=== PATIENT | male | born 1990 | race Caucasian/White ===

== ENCOUNTER 2017-07-08 06:01 | Emergency (ER) | payer MEDICAID ==
[~2017-07-08] VITALS: Ht 177.8 cm; Wt 104.3 kg
[2017-07-08 06:15] VITALS: BP 145/78
--- NOTE | 2017-07-08 06:20 | PHYS DOC ---
Adult General Chief Complaint Chief Complaint: ABDOMINAL PAIN HPI HPI Patient is a 26 year old male who presents with left-sided back pain that radiates around to his abdomen. States it started 2 AM was watching TV/ playing video games. He has a history of alcohol syndrome and mom had hepatitis when he was born and she at the age of 37. He is disabled by the state with an IQ of 40. He denies any nausea vomiting shortness of breath. He states the pain is constant since left side of his back and around his epigastric area. States he waited 3-4 hours before he came to the ER with his grandmother. States nothing he does makes the pain better or worse. He also states he feels short of breath with this. He denies a cough. States his same thing happen about a month ago it resolved after about 20 minutes. Review of Systems Review of Systems Constitutional: Denies fever or chills [] Eyes: Denies change in visual acuity, redness, or eye pain [] HENT: Denies nasal congestion or sore throat [] Respiratory: Denies cough or shortness of breath [] Cardiovascular: No additional information not addressed in HPI [] GI: Nausea for abdominal pain, and denies any nausea, vomiting, bloody stools or diarrhea [] : Denies dysuria or hematuria [] Musculoskeletal: Left-sided back pain, Denies joint pain [] Integument: Denies rash or skin lesions [] Neurologic: Denies headache, focal weakness or sensory changes [] Endocrine: Denies polyuria or polydipsia [] All other systems were reviewed and found to be within normal limits, except as documented in this note. Current Medications Current Medications Current Medications Medications (Trade) Dose Ordered Sig/Jovanny Start Time Stop Time Status Last Admin Dose Admin Multi-Ingredient Mouthwash/Gargle (Gi Cocktail Single Dose) 15 ml 1X ONCE 07/08/17 06:45 07/08/17 06:46 DC 07/08/17 06:43 15 ML Potassium Chloride (KCl Oral Soln) 40 meq 1X ONCE 07/08/17 10:30 07/08/17 10:31 Allergies Allergies Allergies Coded Allergies Type Severity Reaction Last Updated Verified No Known Drug Allergies 07/08/17 No Physical Exam Physical Exam Constitutional: Well developed, well nourished, no acute distress, non-toxic appearance. [] HENT: Normocephalic, atraumatic, bilateral external ears normal, oropharynx moist, no oral exudates, nose normal. [] Eyes: PERRLA, EOMI, conjunctiva normal, no discharge. [] Neck: Normal range of motion, no tenderness, supple, no stridor. [] Cardiovascular:Heart rate regular rhythm, no murmur [] Lungs & Thorax: Bilateral breath sounds clear to auscultation [] Abdomen: Bowel sounds normal, soft, no tenderness, no masses, no pulsatile masses. Unable to obtain a great abdominal exam because he is ticklish on exam Skin: Warm, dry, no erythema, no rash. [] Back: No tenderness, no CVA tenderness. [] Extremities: No tenderness, no cyanosis, no clubbing, ROM intact, no edema. [] Neurologic: Alert and oriented X 3, normal motor function, normal sensory function, no focal deficits noted. [] Psychologic: Affect normal, judgement normal, mood normal. [] Current Patient Data Vital Signs Vital Signs Date Time Temp Pulse Resp B/P (MAP) Pulse Ox O2 Delivery O2 Flow Rate FiO2 07/08/17 06:15 97.8 85 21 145/78 (100) 99 Room Air 97.8 Lab Values Laboratory Tests Test 07/08/17 06:15 White Blood Count 6.5 x10^3/uL (4.0-11.0) Red Blood Count 5.83 x10^6/uL (4.30-5.70) H Hemoglobin 16.8 g/dL (13.0-17.5) Hematocrit 48.9 % (39.0-53.0) Mean Corpuscular Volume 84 fL (79-100) Mean Corpuscular Hemoglobin 29 pg (25-35) Mean Corpuscular Hemoglobin Concent 34 g/dL (31-37) Red Cell Distribution Width 12.9 % (11.5-14.5) Platelet Count 186 x10^3/uL (140-400) Neutrophils (%) (Auto) 50 % (31-73) Lymphocytes (%) (Auto) 35 % (24-48) Monocytes (%) (Auto) 11 % (0-9) H Eosinophils (%) (Auto) 3 % (0-3) Basophils (%) (Auto) 1 % (0-3) Neutrophils # (Auto) 3.3 x10^3uL (1.8-7.7) Lymphocytes # (Auto) 2.3 x10^3/uL (1.0-4.8) Monocytes # (Auto) 0.7 x10^3/uL (0.0-1.1) Eosinophils # (Auto) 0.2 x10^3/uL (0.0-0.7) Basophils # (Auto) 0.1 x10^3/uL (0.0-0.2) Prothrombin Time 12.4 SEC (11.7-14.0) Prothrombin Time INR 1.0 (0.8-1.1) PTT 29 SEC (24-38) D-Dimer (Stefany) 0.21 ug/mlFEU (0.00-0.50) Urine Collection Type Unknown Urine Color Yellow Urine Clarity Clear Urine pH 6.5 Urine Specific [place] 1.020 Urine Protein Negative mg/dL (NEG-TRACE) Urine Glucose (UA) Negative mg/dL (NEG) Urine Ketones (Stick) Negative mg/dL (NEG) Urine Blood Negative (NEG) Urine Nitrite Negative (NEG) Urine Bilirubin Negative (NEG) Urine Urobilinogen Dipstick 2.0 mg/dL (0.2 mg/dL) Urine Leukocyte Esterase Negative (NEG) Urine RBC 0 /HPF (0-2) Urine WBC 0 /HPF (0-4) Urine Squamous Epithelial Cells Few /LPF Urine Bacteria 0 /HPF (0-FEW) Urine Mucus Slight /LPF Sodium Level 140 mmol/L (136-145) Potassium Level 3.0 mmol/L (3.5-5.1) L Chloride Level 102 mmol/L (98-107) Carbon Dioxide Level 29 mmol/L (21-32) Anion Gap 9 (6-14) Blood Urea Nitrogen 12 mg/dL (8-26) Creatinine 1.0 mg/dL (0.7-1.3) Estimated GFR (Cockcroft-Gault) 91.8 Glucose Level 120 mg/dL (70-99) H Calcium Level 8.6 mg/dL (8.5-10.1) Total Bilirubin 0.8 mg/dL (0.2-1.0) Direct Bilirubin 0.2 mg/dL (0.0-0.2) Aspartate Amino Transferase (AST) 28 U/L (15-37) Alanine Aminotransferase (ALT) 59 U/L (16-63) Alkaline Phosphatase 45 U/L (46-116) L Creatine Kinase 257 U/L (39-308) Creatine Kinase MB (Mass) < 0.5 ng/mL (0.0-3.6) Creatine Kinase MB Relative Index % (0-4) Total Protein 7.0 g/dL (6.4-8.2) Albumin 4.1 g/dL (3.4-5.0) Lipase 128 U/L (73-393) Urine Opiates Screen Neg (NEG) Urine Methadone Screen Neg (NEG) Urine Barbiturates Neg (NEG) Urine Phencyclidine Screen Neg (NEG) Urine Amphetamine/Methamphetamine Neg (NEG) Urine Benzodiazepines Screen Neg (NEG) Urine Cocaine Screen Neg (NEG) Urine Cannabinoids Screen Neg (NEG) Urine Ethyl Alcohol Neg (NEG) Laboratory Tests 07/08/17 06:15 Laboratory Tests 07/08/17 06:15 EKG EKG EKG shows sinus rhythm with a rate of [address] elevations or concerning T-wave inversions, normal axis, QTC 366 ms, as interpreted by me. Radiology/Procedures Radiology/Procedures [facility] [address] [place] [address] IMAGING REPORT Signed PATIENT: JOAQUÍN BYRD ACCOUNT: [id number] : 1990 LOCATION: ER AGE: 26 SEX: M EXAM STATUS: REG ER ORD. PHYSICIAN: ISABELLA WADE MD REASON: abd pain PROCEDURE: ACUTE ABDOMEN SERIES ACUTE ABDOMEN SERIES Clinical Indication: abd pain Comparison: None. Technique: Upright and supine views of the abdomen are obtained, frontal view of the chest is obtained. Findings: No focal opacity, pleural effusion or pneumothorax is seen within the chest. Cardia mediastinal silhouette is within normal limits of size. No intra-abdominal free air or air-fluid levels are seen on the upright view. A nonobstructive appearing bowel gas pattern is present. Small amount of formed fecal material seen within the colon. Visualized osseous structures and surrounding soft tissues demonstrate no acute finding. IMPRESSION: No acute radiographic finding in the chest or abdomen. Nonobstructive appearing bowel gas pattern. DICTATED and SIGNED BY: OZZY ROLLINS MD DATE: 07/08/17 0738 CC: ISABELLA WADE MD; NO PCP ~ Impressions: Abdominal pain-resolved Hypokalemia Course & Med Decision Making Course & Med Decision Making Pertinent Labs and Imaging studies reviewed. (See chart for details) His labs, EKG, acute abdominal series are all nonacute. His pain is now 1 out of 10. Vikram's upset that he is been here for 3 hours and 30 minutes. I explained to her that there was a sick patient required my attention for the last hour plus. She was an ostomy CAN'T see him. I explained to her that we've been waiting for his blood work and x-rays and additional studies. She states she wants to go home now. His since his pain is decreased to a 1 out of 2 and he is agreeable being discharged and will discharge him home. They will need to follow-up with primary care physicians as a do not have one. Return precautions given. I have canceled the d-dimer because he is not tachycardic or tachypneic and not complaining of shortness of breath. His potassium was replaced with 140 mEq vial liquid 1. He cannot take pills. He is instructed to eat a banana at home. Dragon Disclaimer Dragon Disclaimer This electronic medical record was generated, in whole or in part, using a voice recognition dictation system. Departure Departure Impression: Primary Impression: Abdominal pain Disposition: 01 HOME, SELF-CARE Admitting Physician: Other Condition: STABLE Patient Instructions: Abdominal Pain Additional Instructions: Your x-ray of your chest and abdomen, your blood work, and your EKG, did not show any acute abnormality's. Your pain has resolved. This could be a muscle spasm, it could be gas pain, it could be a lot of different things causing this discomfort. At this point you will need to be discharged home and don't want to stay for any additional tests. You will need to follow-up with primary care physician's since you don't have one. You need to return back to ER if you have increasing pain, troubles breathing, high fevers, troubles urinating, you have diarrhea, or you have any other concerns. Her potassium was slightly low it was replaced with a dose in the ER. You will need to eat 1- 2 bananas at home tomorrow to keep it in the normal range. You should follow-up with her primary care physician regarding your low potassium level. ISABELLA WADE MD Jul 08, 2017 06:20
[2017-07-08] MEDS ORDERED: LIDO:MAALOX:DONNATAL 1:1:1 15 ML SINGLE DOSE SWSW ONE (06:45)
[2017-07-08 06:59] LABS: BILIRUBIN,URINE NEGATIVE (NEG); GLUCOSE,URINE NEGATIVE (NEG); NITRITE,URINE NEGATIVE (NEG); PH,URINE 6.5; PROTEIN,URINE NEGATIVE (NEG-TRACE)
[2017-07-08 07:02] LABS: CALCIUM 8.6 mg/dL (8.5-10.1); GFR 91.8
[2017-07-08 07:10] LABS: ALBUMIN 4.1 g/dL (3.4-5.0); BASO # 0.1 x10^3/uL (0.0-0.2); BASO % 1 % (0-3); EOS % 3 % (0-3); HEMATOCRIT 48.9 % (39.0-53.0); HEMOGLOBIN 16.8 g/dL (13.0-17.5); LYMPH # 2.3 x10^3/uL (1.0-4.8); LYMPH % 35 % (24-48); MEAN CORPUSCULAR HEMOGLOBIN 29 pg (25-35); MEAN CORPUSCULAR HGB CONC 34 g/dL (31-37); MEAN CORPUSCULAR VOLUME 84 fL (79-100); MONO % 11 % (0-9); NEUT % 50 % (31-73); PLATELET COUNT 186 x10^3/uL (140-400); RED BLOOD COUNT 5.83 x10^6/uL (4.30-5.70); RED CELL DISTRIBUTION WIDTH 12.9 % (11.5-14.5); WHITE BLOOD COUNT 6.5 x10^3/uL (4.0-11.0)
[2017-07-08 07:19] LABS: BARBITURATES NEG (NEG); BENZODIAZEPINES NEG (NEG); CANNABINOIDS NEG (NEG); COCAINE NEG (NEG); METHADONE NEG (NEG); OPIATES NEG (NEG); PHENCYCLIDINE NEG (NEG)
[2017-07-08 07:20] LABS: PROTHROMBIN TIME PATIENT 12.4 SEC (11.7-14.0)
[2017-07-08 07:21] LABS: BACTERIA,URINE 0 /HPF (0-FEW); RBC,URINE 0 /HPF (0-2); SQUAMOUS EPITHELIAL CELL,UR FEW /LPF; WBC,URINE 0 /HPF (0-4)
[2017-07-08 07:35] LABS: TOTAL BILIRUBIN 0.8 mg/dL (0.2-1.0)
[2017-07-08 07:37] LABS: CKMB MASS < 0.5 ng/mL (0.0-3.6); CREATINE KINASE 257 U/L (39-308)
[2017-07-08 07:44] LABS: DIRECT BILIRUBIN 0.2 mg/dL (0.0-0.2)
--- NOTE | 2017-07-08 07:44 | RAD ---
ACUTE ABDOMEN SERIES Clinical Indication: abd pain Comparison: None. Technique: Upright and supine views of the abdomen are obtained, frontal view of the chest is obtained. Findings: No focal opacity, pleural effusion or pneumothorax is seen within the chest. Cardia mediastinal silhouette is within normal limits of size. No intra-abdominal free air or air-fluid levels are seen on the upright view. A nonobstructive appearing bowel gas pattern is present. Small amount of formed fecal material seen within the colon. Visualized osseous structures and surrounding soft tissues demonstrate no acute finding. IMPRESSION: No acute radiographic finding in the chest or abdomen. Nonobstructive appearing bowel gas pattern.
[2017-07-08] MEDS ORDERED: POTASSIUM CHLORIDE 20 MEQ/15 ML ORAL LIQUID. PEG ONE (10:30)
--- NOTE | 2017-07-08 14:02 | EKG ---
[facility] [address] [place] [address] Test Date: 2017-07-08 Test Time: 08:23:28 Pat Name: JOAQUÍN BYRD Department: Room: Gender: M [employer]er: : 1990 Requested By: ISABELLA WADE Order Number: [id number] Reading MD: Sahil Garrison Measurements Intervals [place] Rate: 58 P: 43 VA: 146 QRS: 11 QRSD: 92 T: 24 QT: 370 QTc: 366 Interpretive Statements SINUS RHYTHM ATRIAL PREMATURE COMPLEX(ES) OTHERWISE NORMAL ECG RI6.01 No previous ECG available for comparison Electronically Signed On 07-13-2017 16:13:26 DELIVERY DRIVER/CUSTOMER SERVICE by Sahil Garrison
== END 2017-07-08 10:24 | disposition home or self-care (01) ==
LOC: ER 06:01
DX: R10.13 Epigastric pain (principal); M54.89 Other dorsalgia; E87.6 Hypokalemia
CPT/HCPCS: 36415; 74022; 80048; 80076; 80307; 81001; 82553; 83690; 85025; 85379; 85610; 85730; 93005; 99285-25; G0479

== ENCOUNTER 2017-08-09 04:23 | Emergency (ER) | payer MEDICARE, OTHER, MEDICAID | END 2017-08-09 04:55 | disposition home or self-care (01) | LOC: ER 04:23 | DX: M54.5 Low back pain (principal); R10.9 Unspecified abdominal pain; R11.10 Vomiting, unspecified; F41.9 Anxiety disorder, unspecified; F90.9 Attention-deficit hyperactivity disorder, unspecified type; F12.10 Cannabis abuse, uncomplicated; W18.39XA Other fall on same level, initial encounter; Y93.89 Activity, other specified; Y92.89 Other specified places as the place of occurrence of the external cause; Y99.8 Other external cause status | CPT/HCPCS: 99283 ==